=== PATIENT | male | born 1985 | race Caucasian/White ===

== ENCOUNTER 2022-06-03 19:39 | Emergency (ER) | payer SELFPAY ==
[~2022-06-03] VITALS: Ht 170.2 cm; Wt 70.0 kg
[2022-06-03 19:41] VITALS: BP 147/90
[2022-06-03] MEDS ORDERED: LORAZEPAM 0.5MG TABLET PO ONE (21:15)
== END 2022-06-03 22:44 | disposition home or self-care (01) ==
LOC: ER 19:39
DX: F41.9 Anxiety disorder, unspecified (principal)
CPT/HCPCS: 71045; 93005; 99283; Z7610